=== PATIENT | male | born 1990 | race Caucasian/White ===

== ENCOUNTER → 2018-11-16 | Outpatient (CLI) | payer OTHER ==
--- NOTE | 2018-11-17 02:18 | REP ---
Clinical: Pain at the fifth metatarsal. Technique: AP, lateral, bilateral oblique views of the left foot. Findings: Moderate hallux valgus deformity noted. No acute fracture or dislocation. Fifth toe appears intact and normal. No subcutaneous emphysema or radiodense foreign body. Impression: Hallux valgus deformity. Fifth toe appears intact and normal. Electronically Signed by French Zamudio MD 11/17/2018 02:09 A
== END ==
LOC: M RAD 08:45
PROVIDERS: ATTEND Surgery
DX: M79.672 Pain in left foot (principal); Z87.81 Personal history of (healed) traumatic fracture; M20.12 Hallux valgus (acquired), left foot